=== PATIENT | female | born 2000 | race Two or more races ===

== ENCOUNTER → 2022-10-05 | Emergency (ER) | payer BC ==
[~2022-10-05] VITALS: Ht 167.6 cm; Wt 86.2 kg
[~2022-10-05] MED LIST: IBUPROFEN 400 MG TABLET ONE; IBUPROFEN 400 MG TABLET PO ONE; NITR100C6 PO
--- NOTE | 2022-10-05 01:55 | NUR ---
BIBS SHARP INTERMITTENT BACK PAIN (RIGHT>LEFT) STARTED @1500, PAIN 7/10. PT IN BED, AWAKE, A/O X 4, ABLE TO VERBALIZE NEEDS. NO S/SX OF ACUTE RESPI DISTRESS NOTED AT THIS TIME. FAMILY MEMBER AT BEDSIDE. WILL CONTINUE TO MONITOR.
--- NOTE | 2022-10-05 02:09 | NUR ---
IBUPROFEN (400 MG X 2 TABS) GIVEN ORDERED.
[2022-10-05 02:12] LABS: BILIRUBIN,URINE NEGATIVE (NEGATIVE); COLOR,URINE YELLOW (YELLOW); LEUKOCYTE ESTERASE ,URINE 1+ (NEGATIVE); NITRITE, URINE NEGATIVE (NEGATIVE); PROTEIN,URINE 1+ mg/dl (NEGATIVE); UGLUCOSE NEGATIVE (NEGATIVE); UROBILINOGEN,URINE 0.2 EU/dL (0.2)
[2022-10-05 02:15] LABS: BACTERIA,URINE Few /HPF (None Seen); SQUAMOUS EPITHELIAL CELL,UR Rare /HPF (None Seen)
[2022-10-05 02:34] VITALS: BP 135/74
== END | disposition home or self-care (01) ==
LOC: ER 01:04
DX: N39.0 Urinary tract infection, site not specified (principal); M54.50 Low back pain, unspecified; F17.200 Nicotine dependence, unspecified, uncomplicated
CPT/HCPCS: 81001; 84703-TC; 87086-TC